=== PATIENT | female | born 1975 | race African-American/Black ===

== ENCOUNTER 2021-01-06 15:43 | Emergency (ER) | payer BC ==
[2021-01-06] MEDS ORDERED: Cyclobenzaprine 10 MG Tab PO ONE (16:36)
[2021-01-06] MEDS ORDERED: Acetaminophen/HYDROcodone 325-10 MG Tab PO ONE (16:36)
[2021-01-06] MEDS ORDERED: Lidocaine 5% Oint 35.44 GM Tube TOP ONE (16:36)
--- NOTE | 2021-01-06 16:53 | EDM.PDOC ---
ED HPI GENERAL MEDICAL PROBLEM - General Chief Complaint: Lower Extremity Injury/Pain Stated Complaint: RIGHT KNEE PAIN Time Seen by Provider: 01/06/21 16:25 Source of Information: Reports: Patient, RN, RN Notes Reviewed History Limitations: Reports: No Limitations - History of Present Illness INITIAL COMMENTS - FREE TEXT/NARRATIVE: Patient presents with right knee pain. About 1 hour ago she was climbing stairs and thinks she twisted the knee, resulting in pain to lateral surface, tingling and cramping, 8-10/10. Ice helps somewhat, ibuprofen 800mg did not help. Patient has history of arthritis to right knee, has been getting cortisone shots every 6-12 months, she is due now. She states knee is bone on bone. Patient unable to sleep or get comfortable. 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 Onset: Today Duration: Constant Location: Reports: Lower Extremity, Right Quality: Reports: Ache, Throbbing Severity: Severe Improves with: Reports: Immobilization Worsens with: Reports: Movement Associated Symptoms: Reports: No Other Symptoms Treatments JAVA LEAD DEVELOPER: Reports: NSAIDS, Other (see below) Other Treatments JAVA LEAD DEVELOPER: ice right knee Pain Score (Numeric/FACES): 8 - Related Data Allergies Allergy/AdvReac Type Severity Reaction Status Date / Time No Known Allergies Allergy Verified 01/06/21 16:19 Home Meds: Home Meds . [No Known Home Meds] 01/06/21 [History] Past Medical History HEENT History: Reports: None Cardiovascular History: Reports: None Respiratory History: Reports: None Gastrointestinal History: Reports: None Genitourinary History: Reports: None POLICE INVESTIGATOR History: Reports: None Musculoskeletal History: Reports: Arthritis Neurological History: Reports: None Psychiatric History: Reports: None Endocrine/Metabolic History: Reports: None Hematologic History: Reports: None Immunologic History: Reports: None Oncologic (Cancer) History: Reports: None Dermatologic History: Reports: None - Infectious Disease History Infectious Disease History: Reports: None - Past Surgical History HEENT Surgical History: Reports: None Cardiovascular Surgical History: Reports: None Respiratory Surgical History: Reports: None GI Surgical History: Reports: None Social & Family History - Family History Family Medical History: No Pertinent Family History - Tobacco Use Tobacco Use Status *Q: Never Tobacco User - Caffeine Use Caffeine Use: Reports: Coffee - Recreational Drug Use Recreational Drug Use: No - Living Situation & Occupation Living situation: Reports: Alone Occupation: Employed Review of Systems - Review of Systems Review Of Systems: Comprehensive ROS is negative, except as noted in HPI. ED EXAM, GENERAL - Physical Exam Exam: See Below Exam Limited By: No Limitations General Appearance: Alert, No Apparent Distress, Obese Throat/Mouth: Normal Voice Head: Atraumatic, Normocephalic Respiratory/Chest: No Respiratory Distress Extremities: No Pedal Edema, Other (Right lateral knee pain with painful ROM, able to wt bear and ambulate. Not tender to palpation. No visible deformity, swelling, bruising, or redness. No increased warmth.). No: Joint Swelling Neurological: Alert, Oriented Psychiatric: Normal Affect, Normal Mood Skin Exam: Warm, Dry, Intact, Normal Color, No Rash Course - Vital Signs Last Recorded V/S: Last Vital Signs Temp 97.7 F 01/06/21 16:12 Pulse 77 01/06/21 16:12 Resp 20 01/06/21 16:12 BP 108/71 01/06/21 16:12 Pulse Ox 99 01/06/21 16:12 - Orders/Labs/Meds Orders: Active Orders 24 hr Category Date Time Status Knee 3V Rt [CR] Stat Exams 01/06/21 16:37 Taken DME for Discharge [COMM] Routine Oth 01/06/21 17:41 Ordered Meds: Medications Discontinued Medications Generic Name Dose Route Start Last Admin Trade Name Kavonq PRN Reason Stop Dose Admin Hydrocodone Bitart/Acetaminophen 1 tab 01/06/21 16:36 01/06/21 17:02 Acetaminophen/Hydrocodone 325-10 Mg Tab PO 01/06/21 16:37 1 tab ONETIME ONE Administration Cyclobenzaprine HCl 10 mg 01/06/21 16:36 01/06/21 17:00 Cyclobenzaprine 10 Mg Tab PO 01/06/21 16:37 10 mg ONETIME ONE Administration Lidocaine HCl 30 gm 01/06/21 16:36 01/06/21 17:03 Lidocaine 5% Oint 35.44 Gm Tube TOP 01/06/21 16:37 30 gm ONETIME ONE Administration - Radiology Interpretation Free Text/Narrative:: XR Rt Knee: arthritic change worse at lateral compartment, no acute fracture. See. Rad. report. Departure - Departure Time of Disposition: 17:42 Disposition: Home, Self-Care 01 Condition: Good Clinical Impression: Osteoarthritis of right knee Qualifiers: Osteoarthritis type: unspecified Qualified Code(s): M17.11 - Unilateral primary osteoarthritis, right knee - Discharge Information *PRESCRIPTION DRUG MONITORING PROGRAM REVIEWED*: No *COPY OF PRESCRIPTION DRUG MONITORING REPORT IN PATIENT ROBERT: No Instructions: Osteoarthritis, Acute Knee Pain, Adult Forms: ED Department Discharge Additional Instructions: Rx: [place] 5mg/325mg *Do not drive or work while under the influence of this medication. Rest and ice packs to right knee. Use MAIN wrap or your knee immobilizer as needed for comfort. Follow up with your orthopedic surgeon as soon as possible. Sepsis Event Note (ED) - Evaluation Sepsis Screening Result: No Definite Risk - Focused Exam Vital Signs: Vital Signs Temp Pulse Resp BP Pulse Ox 01/06/21 16:12 97.7 F 77 20 108/71 99 - My Orders Last 24 Hours: My Active Orders 01/06/21 16:37 Knee 3V Rt [CR] Stat 01/06/21 17:41 DME for Discharge [COMM] Routine - Assessment/Plan Last 24 Hours: My Active Orders 01/06/21 16:37 Knee 3V Rt [CR] Stat 01/06/21 17:41 DME for Discharge [COMM] Routine
--- NOTE | 2021-01-06 17:52 | CR ---
PROCEDURE INFORMATION: Exam: XR Right Knee Exam date and time: 01/06/2021 5:25 PM Age: 45 years old Clinical indication: Other: Pain; Additional info: RT knee pain/injury, HX of o. A. TECHNIQUE: Imaging protocol: XR Right knee. Views: 3 views. COMPARISON: No relevant prior studies available. FINDINGS: Bones/joints: Tricompartmental degenerative changes are seen. They appear worst in the lateral compartment, moderate. No fracture identified. No malalignment. Soft tissues: Small suprapatellar effusion IMPRESSION: No evidence of acute osseous injury
== END 2021-01-06 18:05 | disposition home or self-care (01) ==
LOC: DL.ED 15:43
DX: M17.11 Unilateral primary osteoarthritis, right knee (principal)
CPT/HCPCS: 73562; 99283; A9270